=== PATIENT | female | born 1980 | race Caucasian/White ===

== ENCOUNTER 2018-11-30 20:59 | Emergency (ER) | payer OTHER ==
[~2018-11-30] VITALS: Ht 170.2 cm; Wt 90.7 kg
[~2018-11-30 20:59] MED LIST: CIPROFLOXACIN500 M1 PO; FLAGYL500 M1 PO; LOPRESSOR 12.12.5 MG; MEDROLDOSEPACK PO; NORCO 5-325 TA1 EACH PO
[2018-11-30] MEDS ORDERED: LEXAPRO 10 MG T10 M1 PO (21:07)
[2018-11-30] MEDS ORDERED: COUMADIN 5 MG TA5 M1 PO (21:07)
[2018-11-30 23:02] LABS: APTT 24.5 Seconds (24.5-32.8); PROTIME 10.4 Seconds (9.3-11.4)
[2018-11-30] MEDS ORDERED: ENOXAPARIN100 MG/11 SUBQ (23:04)
[2018-12-01] MEDS ORDERED: ACETAMINOPHEN-1 EAC1 PO (00:09)
[2018-12-01 00:19] VITALS: BP 124/72
== END 2018-12-01 00:20 | disposition home or self-care (01) ==
LOC: ER 20:59
PROVIDERS: Emergency Medicine
DX: I82.492 Acute embolism and thrombosis of other specified deep vein of left lower extremity (principal); D68.59 Other primary thrombophilia; F17.210 Nicotine dependence, cigarettes, uncomplicated; Z79.01 Long term (current) use of anticoagulants; Z90.89 Acquired absence of other organs; Z98.890 Other specified postprocedural states; Z79.899 Other long term (current) drug therapy; Z88.0 Allergy status to penicillin

== ENCOUNTER 2019-01-13 00:29 | Emergency (ER) | payer OTHER ==
[~2019-01-13] VITALS: Ht 170.2 cm; Wt 97.5 kg
[~2019-01-13 00:29] MED LIST changes: +ACETAMINOPHEN-1 EAC1 PO; +COUMADIN 5 MG TA5 M1 PO; +ENOXAPARIN100 MG/11 SUBQ; +LEXAPRO 10 MG T10 M1 PO
[2019-01-13] MEDS ORDERED: BUSPIRONE HCL10 MG PO (00:50)
[2019-01-13 02:12] LABS: INR 1.7; PROTIME 17.2 Seconds (9.3-11.4)
[2019-01-13] MEDS ORDERED: NORCO 5-325 TA1 EAC1 PO (02:30)
[2019-01-13] MEDS ORDERED: SENNA-DOCUSATE1 EAC1 PO (02:30)
[2019-01-13 03:04] VITALS: BP 116/71
== END 2019-01-13 03:00 | disposition home or self-care (01) ==
LOC: ER 00:29
PROVIDERS: Emergency Medicine
DX: M79.652 Pain in left thigh (principal); R79.1 Abnormal coagulation profile; F17.210 Nicotine dependence, cigarettes, uncomplicated; Z88.0 Allergy status to penicillin; Z90.49 Acquired absence of other specified parts of digestive tract; Z98.890 Other specified postprocedural states

== ENCOUNTER 2019-07-10 18:58 | Emergency (ER) | payer OTHER ==
[~2019-07-10] VITALS: Ht 170.2 cm; Wt 95.3 kg
[~2019-07-10 18:58] MED LIST changes: +BUSPIRONE HCL10 MG PO; +NORCO 5-325 TA1 EAC1 PO; +SENNA-DOCUSATE1 EAC1 PO
[2019-07-10] MEDS ORDERED: ELIQUIS5 MG PO (19:05)
[2019-07-10] MEDS ORDERED: ZANAFLEX4 M1 PO (21:19)
[2019-07-10 22:07] VITALS: BP 109/65
== END 2019-07-10 22:08 | disposition home or self-care (01) ==
LOC: ER 18:58
DX: I82.5Y2 Chronic embolism and thrombosis of unspecified deep veins of left proximal lower extremity (principal); F17.210 Nicotine dependence, cigarettes, uncomplicated; Z90.49 Acquired absence of other specified parts of digestive tract; Z98.890 Other specified postprocedural states; Z88.0 Allergy status to penicillin